=== PATIENT | female | born 1985 ===

== ENCOUNTER 2022-02-19 19:56 | Emergency (ER) | payer OTHER ==
[2022-02-19] MEDS ORDERED: ACETAMINOPHEN 325 MG TABLET ONE (21:45)
[2022-02-19] MEDS ORDERED: ONDANSETRON 4 MG (ODT) TAB ONE (21:45)
[2022-02-19 22:09] LABS: Urine Blood Negative (Negative); Urine Glucose Negative (Negative); Urine Protein 1+ (Negative); Urine Specific Gravity >=1.030 (1.005-1.030); Urine pH 5.5 (5.0-7.0)
[2022-02-19 22:18] LABS: Urine Bacteria <20 /HPF (<20); Urine Crystals Unidentified Many /HPF (None Seen); Urine Mucus 1+ /HPF (None Seen); Urine RBC <5 /HPF (None Seen); Urine WBC Clump Moderate /HPF (None Seen)
[2022-02-19] MEDS ORDERED: DIPHENHYDRAMINE 50 MG/ML VIAL ONE (22:28)
[2022-02-19] MEDS ORDERED: FAMOTIDINE 20 MG/2 ML VIAL IV ONE (22:28)
[2022-02-19] MEDS ORDERED: NA CHLORIDE 0.9% 1,000 ML ONE (22:28)
[2022-02-19] MEDS ORDERED: METOCLOPRAMIDE 10 MG/2mL INJ ONE (22:28)
[2022-02-19 22:37] LABS: SARS-COV-2 RT PCR NEGATIVE (NEGATIVE)
[2022-02-19 23:15] LABS: Absolute Lymphocytes (CBC) 2.1 K/uL (0.7-4.9); Hematocrit 40.7 % (36.0-45.0); Lymphocytes % 18.9 % (15.3-44.8); MCV 87.4 fL (80-100); MPV 8.9 fL (7.6-11.3); RBC Red Blood Cell Count 4.65 M/uL (3.86-4.86)
[2022-02-19 23:25] LABS: Albumin 3.9 g/dL (3.4-5.0); Bilirubin Total 0.6 mg/dL (0.2-1.0); Potassium 3.4 mmol/L (3.5-5.1)
[2022-02-20] MEDS ORDERED: ACETAMINOPHEN 500 MG TAB ONE (01:02)
[2022-02-20] MEDS ORDERED: NITROFURAN MACRO 100 MG CAP PO ONE (01:02)
[2022-02-20] MEDS ORDERED: KETOROLAC 30 MG/ML INJ ONE (01:03)
[2022-02-20] MEDS ORDERED: NA CHLORIDE 0.9% 1,000 ML ONE (01:03)
[2022-02-20] MEDS ORDERED: dexAMETHasone 10 MG/ML VIAL ONE (01:03)
--- NOTE | 2022-02-20 01:29 | EDPHYS ---
Physician Documentation [facility] Name: Staci De Santiago Age: 36 yrs Sex: Female : 1985 Arrival Date: 02/19/2022 Time: 20:02 Bed 23 Private MD: ED Physician Rajeev Harvey HPI: 02/19 22:00 This 36 yrs old Female presents to ER via Ambulatory with complaints of Vomiting, cp Headache. 22:00 The patient presents to the emergency department with nausea, with "dry heaves", cp vomiting, that is continuous. 22:00 Onset: The symptoms/episode began/occurred 4 hour(s) ago. Possible causes: sick cp contacts, patients at work, co-workers. Associated signs and symptoms: Pertinent positives: headache, Pertinent negatives: abdominal pain, diarrhea, fever, GI bleeding. Severity of symptoms: in the emergency department the symptoms are unchanged despite home interventions. 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 - Social history:: Smoking status: Patient denies any tobacco usage or history of. ROS: 22:05 Constitutional: Positive for body aches, poor PO intake, Negative for fever. cp 22:05 Eyes: Negative for injury, pain, redness, and discharge. cp 22:05 ENT: Negative for drainage from ear(s), ear pain, sore throat, difficulty swallowing, difficulty handling secretions. 22:05 Respiratory: Negative for cough, shortness of breath, wheezing. 22:05 Abdomen/GI: Positive for nausea and vomiting, Negative for abdominal pain, diarrhea, constipation, hematemesis. 22:05 Neuro: Positive for headache, Negative for altered mental status, dizziness, weakness. 22:05 All other systems are negative. Exam: 22:10 Constitutional: The patient appears in no acute distress, alert, awake, non-toxic, well cp developed, well nourished, uncomfortable, overweight 22:10 Head/Face: Normocephalic, atraumatic. cp 22:10 Eyes: Periorbital structures: appear normal, Conjunctiva: normal, no exudate, no injection, Sclera: no appreciated abnormality, Lids and lashes: appear normal, bilaterally. 22:10 ENT: External ear(s): are unremarkable, Nose: is normal, Mouth: Lips: moist, Oral mucosa: pink and intact, moist, Posterior pharynx: Airway: no evidence of obstruction, patent, erythema, is not appreciated, exudate, is not appreciated. 22:10 Chest/axilla: Inspection: normal. 22:10 Cardiovascular: Rate: tachycardic, Rhythm: regular. 22:10 Respiratory: the patient does not display signs of respiratory distress, Respirations: normal, no use of accessory muscles, no retractions, labored breathing, is not present, Breath sounds: are clear throughout, no decreased breath sounds, no stridor, no wheezing. 22:10 Abdomen/GI: Inspection: abdomen appears normal, Bowel sounds: active, all quadrants, Palpation: abdomen is soft and non-tender, in all quadrants. 22:10 Back: CVA tenderness, is absent. 22:10 Neuro: Orientation: to person, place \\T\\ time. Mentation: is normal, Motor: moves all fours, strength is normal, Sensation: no obvious gross deficits. Vital Signs: 21:28 BP 118 / 65; Pulse 88; Resp 17; Temp 98.0(O); Pulse Ox 99% on R/A; Weight 98.43 kg; kd3 Height 5 ft. 7 in. (170.18 cm); 22:13 BP 130 / 97; Pulse 108; Resp 16 S; Pulse Ox 100% on R/A; bb 23:04 BP 106 / 57; Pulse 86; Resp 18; Pulse Ox 99% on R/A; oe 06 01:13 BP 103 / 68; Pulse 67; Resp 16 S; Temp 97.7(O); Pulse Ox 99% on R/A; bb 02:38 BP 98 / 57; Pulse 88; Resp 16 S; Temp 97.8(O); Pulse Ox 97% on R/A; Pain 0/10; bb 02/19 21:28 Body Mass Index 33.99 (98.43 kg, 170.18 cm) kd3 MDM: 02/19 21:42 Patient medically screened. 02/20 01:28 Data reviewed: vital signs, nurses notes, lab test result(s). 01:28 Counseling: I had a detailed discussion with the patient and/or guardian regarding: the cp historical points, exam findings, and any diagnostic results supporting the discharge/admit diagnosis, lab results, to return to the emergency department if symptoms worsen or persist or if there are any questions or concerns that arise at home. Response to treatment: the patient's symptoms have markedly improved after treatment, VSS. Headache and nausea markedly improved. Vomiting resolved. Will discharge to home for continued monitoring. 02/19 21:33 Order name: COVID-19/FLU A+B; Complete Time: 23:14 jb5 02/19 21:44 Order name: Urine Microscopic Only; Complete Time: 23:14 02/19 23:15 Interpretation: Normal except: UWBC 20-50; UNCX Many; UWBC Clump Moderate. 02/19 22:09 Order name: Urine Dipstick-Ancillary; Complete Time: 22:16 EDOK 02/19 22:16 Interpretation: Normal except: UKET 4+; UPROT 1+. 02/19 22:17 Order name: CBC with Diff; Complete Time: 23:31 02/19 23:31 Interpretation: Normal except: WBC 11.10. 02/19 22:17 Order name: CMP; Complete Time: 23:31 02/20 00:49 Interpretation: Normal except: GFR 70; K 3.4; GLOB 4.1; A/G 1.0. 02/19 22:17 Order name: Lipase; Complete Time: 23:31 02/19 22:21 Order name: Urine Culture EDOK 02/19 21:44 Order name: Urine Dipstick-Ancillary (obtain specimen); Complete Time: 22:15 02/19 22:17 Order name: IV Saline Lock; Complete Time: 22:45 02/19 22:17 Order name: Labs collected and sent; Complete Time: 22:45 02/20 00:53 Order name: PO challenge; Complete Time: 01:11 cp Administered Medications: 02/19 21:46 Drug: Ondansetron 4 mg Route: PO; kd3 02/20 01:12 Follow up: Response: No adverse reaction 02/19 21:46 Drug: Tylenol 650 mg Route: PO; kd3 22:45 Follow up: Response: No change in condition bb 22:45 Follow up: Response: No change in condition bb 22:36 Drug: NS 0.9% 1000 ml Route: IV; Rate: 1 bolus; Site: right antecubital; bb 23:30 Follow up: IV Status: Completed infusion bb 22:36 Drug: Reglan (metoCLOPramide) 10 mg Route: IVP; Site: right antecubital; bb 02/20 01:12 Follow up: Response: No adverse reaction bb 02/19 22:38 Drug: Benadryl (diphenhydrAMINE) 25 mg Route: IVP; Site: right antecubital; bb 02/20 01:12 Follow up: Response: No adverse reaction bb 02/19 22:39 Drug: Pepcid (famotidine) 20 mg Route: IVP; Site: right antecubital; bb 02/20 01:13 Follow up: Response: No adverse reaction bb 01:02 CANCELLED (Physician Discretion): Tylenol 1000 mg PO once bb 01:08 Drug: NS 0.9% 1000 ml Route: IV; Rate: 1 bolus; Site: right antecubital; bb 02:39 Follow up: IV Status: Completed infusion; IV Intake: 950ml bb 01:08 Drug: Ketorolac 15 mg Route: IVP; Site: right antecubital; bb 02:39 Follow up: Response: No adverse reaction bb 01:10 Drug: Decadron - Dexamethasone 10 mg Route: IVP; Site: right antecubital; bb 02:39 Follow up: Response: No adverse reaction bb 01:11 Drug: Nitrofurantoin 100 mg Route: PO; bb 02:39 Follow up: Response: No adverse reaction bb Disposition Summary: 02/20/22 01:29 Discharge Ordered Location: Home cp Problem: new cp Symptoms: have improved cp Condition: Stable cp Diagnosis - Nausea with vomiting, unspecified cp - Headache cp - UTI/ Urinary tract infection, site not specified cp Followup: cp - With: Private Physician - When: 2 - 3 days - Reason: Recheck today's complaints Discharge Instructions: - Discharge Summary Sheet cp - Migraine Headache cp - Nausea and Vomiting, Adult cp - Urinary Tract Infection, Adult cp Forms: - Medication Reconciliation Form cp - Thank You Letter cp - Antibiotic Education cp - Prescription Opioid Use cp - Work release form bb Prescriptions: - Ibuprofen 800 mg Oral Tablet - take 1 tablet by ORAL route every 8 hours As needed take with food; 30 tablet; cp Refills: 0, Product Selection Permitted - Macrobid 100 mg Oral Capsule - take 1 capsule by ORAL route every 12 hours for 7 days; 14 capsule; Refills: 0, cp Product Selection Permitted - promethazine 25 mg Oral Tablet - take 1 tablet by ORAL route every 6 hours As needed; 20 tablet; Refills: 0, cp Product Selection Permitted Addendum: 02/23/2022 07:03 Co-signature as Attending Physician, Rajeev Harvey MD I agree with the assessment and r t plan of care. Signatures: Dispatcher [employer] EDElda Guillory RN RN bb Nelson Leon PA PA Sally Wilson RN RN kd3 Rajeev Harvey MD MD rt Corrections: (The following items were deleted from the chart) 02/19 21:32 21:30 Allergies: No Known Allergies; kd3 kd3 21:32 21:30 Home Meds: None; kd3 kd3 02/20 00:49 12 23:32 Normal except: GFR 70; K 3.4. cp cp 02/20 00:49 00:49 Normal except: GFR 70; K 3.4; GLOB 4.1. cp cp 01:02 00:59 Tylenol 1000 mg PO once ordered. cp bb
--- NOTE | 2022-02-20 01:29 | ER ---
Nurse's Notes [facility] Name: Staci De Santiago Age: 36 yrs Sex: Female : 1985 Arrival Date: 02/19/2022 Time: 20:02 Bed 23 Private MD: Diagnosis: Nausea with vomiting, unspecified;Headache;UTI/ Urinary tract infection, site not specified Presentation: 02/19 21:28 Chief complaint: Patient states: I just left [facility] not too long ago and I think I kd3 contracted COVID or influenza from one of the patients. I have been dry heaving and having body aches. The symptoms started about 3 or 4 hours ago. Coronavirus screen: Vaccine status: Patient reports receiving the 2nd dose of the covid vaccine. Ebola Screen: No symptoms or risks identified at this time. Initial Sepsis Screen: Does the patient meet any 2 criteria? No. Patient's initial sepsis screen is negative. Does the patient have a suspected source of infection? No. Patient's initial sepsis screen is negative. Risk Assessment: Do you want to hurt yourself or someone else? Patient reports no desire to harm self or others. Onset of symptoms was February 19, 2022. 21:28 Method Of Arrival: Ambulatory kd3 21:28 Acuity: ANAMARIA 4 kd3 Triage Assessment: 21:30 General: Appears uncomfortable, Behavior is calm, cooperative. Pain: Complains of pain kd3 in headache. Neuro: Level of Consciousness is awake, alert, obeys commands, Oriented to person, place, time, situation. Cardiovascular: Patient's skin is warm and dry. Respiratory: Airway is patent Trachea midline Respiratory effort is even, unlabored. GI: Reports lower abdominal pain, diarrhea, nausea, vomiting. 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 - Social history:: Smoking status: Patient denies any tobacco usage or history of. Screenin:33 Abuse screen: Denies threats or abuse. Denies injuries from another. Nutritional kd3 screening: No deficits noted. Tuberculosis screening: No symptoms or risk factors identified. Fall Risk None identified. Assessment: 22:13 General: Appears in no apparent distress. uncomfortable. Pain: Complains of pain in bb headache. Neuro: Level of Consciousness is awake, alert, obeys commands, Oriented to person, place, time, situation. Cardiovascular: Capillary refill < 3 seconds Patient's skin is warm and dry. Respiratory: Respiratory effort is even, unlabored, Respiratory pattern is regular. GI: Abdomen is obese, Reports nausea, vomiting. Derm: Skin is pink, warm \T\ dry. Musculoskeletal: Circulation, motion, and sensation intact. 23:25 Reassessment: pt sleeping, eyes closed, resp unlabored, awaiting diagnostic results. bb 02/20 01:13 Reassessment: Patient is alert, oriented x 3, equal unlabored respirations, skin bb warm/dry/pink. pt states she still has a lingering headache pt medicated see MAY. 01:32 Reassessment: awaiting discharge for completion of IV fluids. bb 02:37 Reassessment: Patient is alert, oriented x 3, equal unlabored respirations, skin bb warm/dry/pink. Patient states feeling better. pt verbalized understanding of and agrees to plan of care discharge instructions given pt ambulated with steady gait to exit. Vital Signs: 02/19 21:28 BP 118 / 65; Pulse 88; Resp 17; Temp 98.0(O); Pulse Ox 99% on R/A; Weight 98.43 kg; kd3 Height 5 ft. 7 in. (170.18 cm); 22:13 BP 130 / 97; Pulse 108; Resp 16 S; Pulse Ox 100% on R/A; bb 23:04 BP 106 / 57; Pulse 86; Resp 18; Pulse Ox 99% on R/A; oe 02/20 01:13 BP 103 / 68; Pulse 67; Resp 16 S; Temp 97.7(O); Pulse Ox 99% on R/A; bb 02:38 BP 98 / 57; Pulse 88; Resp 16 S; Temp 97.8(O); Pulse Ox 97% on R/A; Pain 0/10; bb 02/19 21:28 Body Mass Index 33.99 (98.43 kg, 170.18 cm) kd3 ED Course: 02/19 20:02 Patient arrived in ED. bp1 21:30 Triage completed. kd3 21:30 Arm band placed on right wrist. kd3 21:33 Patient has correct armband on for positive identification. kd3 21:33 No provider procedures requiring assistance completed. kd3 21:34 Nelson Leon PA is PHCP. cp 21:34 Rajeev Harvey MD is Attending Physician. cp 21:46 COVID-19/FLU A+B Sent. kd3 22:13 Elda Connell, PERLA is Primary Nurse. bb 22:35 Initial lab(s) drawn, by va, sent to lab. Inserted saline lock: 20 gauge in right bb antecubital area, using aseptic technique. Blood collected. 02/20 02:40 IV discontinued, intact, bleeding controlled, No redness/swelling at site. Pressure bb dressing applied. Administered Medications: 02/19 21:46 Drug: Ondansetron 4 mg Route: PO; kd3 02/20 01:12 Follow up: Response: No adverse reaction bb 02/19 21:46 Drug: Tylenol 650 mg Route: PO; kd3 22:45 Follow up: Response: No change in condition bb 22:45 Follow up: Response: No change in condition bb 22:36 Drug: NS 0.9% 1000 ml Route: IV; Rate: 1 bolus; Site: right antecubital; bb 23:30 Follow up: IV Status: Completed infusion bb 22:36 Drug: Reglan (metoCLOPramide) 10 mg Route: IVP; Site: right antecubital; bb 02/20 01:12 Follow up: Response: No adverse reaction bb 02/19 22:38 Drug: Benadryl (diphenhydrAMINE) 25 mg Route: IVP; Site: right antecubital; bb 02/20 01:12 Follow up: Response: No adverse reaction bb 02/19 22:39 Drug: Pepcid (famotidine) 20 mg Route: IVP; Site: right antecubital; bb 02/20 01:13 Follow up: Response: No adverse reaction bb 01:02 CANCELLED (Physician Discretion): Tylenol 1000 mg PO once bb 01:08 Drug: NS 0.9% 1000 ml Route: IV; Rate: 1 bolus; Site: right antecubital; bb 02:39 Follow up: IV Status: Completed infusion; IV Intake: 950ml bb 01:08 Drug: Ketorolac 15 mg Route: IVP; Site: right antecubital; bb 02:39 Follow up: Response: No adverse reaction bb 01:10 Drug: Decadron - Dexamethasone 10 mg Route: IVP; Site: right antecubital; bb 02:39 Follow up: Response: No adverse reaction bb 01:11 Drug: Nitrofurantoin 100 mg Route: PO; bb 02:39 Follow up: Response: No adverse reaction bb Medication: 02/19 22:13 VIS not applicable for this client. bb Intake: 02/20 02:39 IV: 950ml; Total: 950ml. bb Outcome: 01:29 Discharge ordered by MD. cp 02:39 Discharged to home ambulatory. bb 02:39 Condition: stable 02:39 Discharge instructions given to patient, Instructed on discharge instructions, follow up and referral plans. medication usage, Demonstrated understanding of instructions, follow-up care, medications, Prescriptions given X 3. 02:40 Patient left the ED. bb Signatures: Elda Connell, RN RN bb Nelson Leon, PA PA cp Satya Ayala Brittany bp1 Doucette, Kyli, RN RN kd3 Corrections: (The following items were deleted from the chart) 02/19 21:32 21:30 Allergies: No Known Allergies; kd3 kd3 21:32 21:30 Home Meds: None; kd3 kd3
[2022-02-20 06:56] VITALS: BP 98/57; TEMP 97.8; O2SAT 97
== END 2022-02-20 02:40 | disposition home or self-care (01) ==
LOC: ER 19:56
DX: N39.0 Urinary tract infection, site not specified (principal); R51.9 Headache, unspecified; Z20.822 Contact with and (suspected) exposure to COVID-19; Z88.2 Allergy status to sulfonamides; Z88.8 Allergy status to other drugs, medicaments and biological substances
CPT/HCPCS: 96361; 87088; 85025; 87086; 36415; 83690; 80053; 0240U; 96375; 96374; 99284; J2765; J1200; Q0162; J1100; J7030 ×2; 81003; 81015